=== PATIENT | female | born 2000 | race Caucasian/White ===

== ENCOUNTER 2021-10-17 07:42 | Inpatient (IN) ==
[2021-10-17] MEDS ORDERED: OXYTOCIN 30 UNITS/500 ML BAG IV PRN ×2 (07:49→07:53)
[2021-10-17 09:16] LABS: Hematocrit (blood only) 37.7 % (34.1-44.9); Hemoglobin 12.8 g/dl (12.0-16.0); Mean Corpuscular Hemoglobin 29.4 pg (25.0-34.0); Mean Corpuscular Volume 86.7 fL (80.0-100.0); Mean Platelet Volume 10.9 fL (9.4-12.3); Platelet Count 173 K/uL (130-400); RDW Coefficient of Variation 13.8 % (11.5-14.5); RDW Standard Deviation 43.7 fL (36.4-46.3); Red Blood Count 4.35 M/uL (3.93-5.22); White Blood Count 8.12 K/ul (4.8-10.8)
--- NOTE | 2021-10-17 09:30 | History & Physical Report ---
Date of Service October 17, 2021 Assessment & Plan (1) Increase in placental thickness: (2) Obesity affecting , antepartum: Plan 21 y/o G1 at 39 5/7 wga presents for IOL due to placentomegaly at [facility] rec VSS Fetus cat 1 Labor - will start pit GBS neg epidural PRN Admission and Anticipated Discharge Date Admission Date: October 17, 2021 History of Present Illness Chief Complaint: IOL Primary Care Provider: Keira Chavarria PA-C 21 y/o G1 at 39 5/7 wga presents for IOL due to placental thickening w/ lakes as recommended by [facility]. +FM; denies ctx, LOF, VB. At one point there was concern for cardiac anomaly on [facility] scan however echo was normal and she returned to routine OB care PNI: Placentomegaly w/ lakes, deliver by EDC per [facility] BMI 40 Rh neg Late presentation Past RESERVATIONS AGENT Hx: G1 06/2021 neg cyto Denies hx STIs Allergies Allergy/AdvReac Type Severity Reaction Status Date / Time Penicillins Allergy Intermediate Hives Verified 10/14/21 15:49 Home Medications Medication Instructions Recorded Confirmed Type prenat.vits,keyona,hvc-[id number] 1 tab PO DAILY 06/22/21 10/14/21 History Patient History Medical History Anxiety Rh negative status during Varicella vaccination Surgical History No history of previous surgery Family History (Updated 06/22/21 @ 13:19 by Rebecca Ac) Denies family history of Ovarian cancer Breast cancer Colorectal cancer Social History Smoking Status: Never smoker Hx Alcohol Use: No Hx Substance Use: No Preferred Language: Thai Tester Regulator Required: No Beliefs That Will Affect Care: None marital status: Single marital status details: patricia Evangelista (21) [phone] Current Living Situation: Significant Other Current Living Situation Comment: lives with neha gomez current occupational status: student current occupation: [employer] Other Information That Helps Us Care for You: No Feels Safe at Home: Yes Safety Concerns: Feels Safe At This Time Assistive Devices: None Physical Exam Genitourinary: OB Exam Abdomen: + vertex (confirmed by BSUS) and + estimated weight (7-8) Manual OB Exam: + cervical dilation 3 cm, + cervical effacement 50% and + station -2 OB Exam Monitor Tracing: + external FHT monitor used, + external uterine monitor used (none) and + category I (135 /mod/+accel/-decel) Results & Data ([facility]) Vital Signs (Past 12 Hours) Vital Signs Temp Pulse Resp BP 10/17/21 08:46 98.4 F 20 10/17/21 08:07 98.4 F 113 H 20 133/68 Laboratory Results OB Labs: Blood Type A Negative 06/24/21 Antibody Screen NEGATIVE 07/29/21 Hemoglobin 13.3 g/dL (12.0-16.0) 09/03/21 Hematocrit 39.1 % (37-47) 09/03/21 Mean Corpuscular Volume 87.3 fL (80-100) 09/03/21 Platelet Count 209 K/uL (130-400) 09/03/21 Rubella IgG Antibody Immune (Immune) 06/24/21 Rapid Plasma Reagin Nonreactive (Nonreactive) 06/24/21 Hepatitis B Surface Antigen. NON-REACTIVE (NON-REACTIVE) 06/24/21 Hepatitis C Antibody (EIA) NON-REACTIVE (NON-REACTIVE) 06/24/21 HIV (1&2) Ag and Ab Confirmation NON-REACTIVE (NON-REACTIVE) 06/24/21 Glucose 1 Hour 50 gm Load 109 mg/dl (70-130) 07/29/21 OB Optional Labs: Chlamydia trachomatis RNA NOT DETECTED (NOT DETECTED) 06/24/21 Neisseria gonorrhoeae RNA NOT DETECTED (NOT DETECTED) 06/24/21 Labs Reviewed: Declines cf/sma--mln Declines cfdna--mln GBS neg Diagnostic Findings 09/19 EFW 44%, post plac Coding Level of Care Code None Diagnoses Increase in placental thickness Obesity affecting , antepartum O99.210
[2021-10-17] MEDS: LACTATED RINGER'S 1,000 ML IV PRN ×3 (10:03→21:51)
--- NOTE | 2021-10-17 15:31 | Labor Progress Brief Note ---
Date of Service October 17, 2021 Subjective some cramping Assessment & Plan (1) Increase in placental thickness: (2) Obesity affecting , antepartum: Plan 21 y/o G1 at 39 5/7 wga presents for IOL due to placentomegaly at [facility] rec VSS Fetus cat 1 Labor - pit at 16, now s/p arom. Continue induction GBS neg epidural PRN Admission and Anticipated Discharge Date Admission Date: October 17, 2021 Physical Exam Genitourinary: Manual OB Exam: + cervical dilation (3-4), + cervical effacement 50% and + station -2 OB Exam Monitor Tracing: + external FHT monitor used, + external uterine monitor used (q3-5) and + category I (125/ mod/+accel/-decel) Results & Data ([facility]) Vital Signs (Past 12 Hours) Vital Signs Temp Pulse Resp BP 10/17/21 08:46 98.4 F 20 10/17/21 15:20 98.1 F 10/17/21 14:51 18 10/17/21 14:51 98.4 F 18 10/17/21 14:52 81 10/17/21 14:52 106/58 L 10/17/21 13:50 20 10/17/21 13:50 98.2 F 20 10/17/21 13:50 74 10/17/21 13:50 110/77 10/17/21 10:06 100 H 10/17/21 10:06 118/71 10/17/21 08:07 98.4 F 113 H 20 133/68 Coding Level of Care Code None Diagnoses Increase in placental thickness Obesity affecting , antepartum O99.210
[2021-10-17] MEDS ORDERED: fentaNYL citrate 100 MCG/2 ML VIAL ONE (17:22)
[2021-10-17] MEDS ORDERED: SODIUM CHLORIDE 0.9% INJ 10 ML VIAL ONE (17:22)
[2021-10-17] MEDS ORDERED: ePHEDrine sulfate 50 MG/ML AMP ONE (17:22)
[2021-10-17] MEDS ORDERED: BUPIVACAINE 0.25% 30 ML VIAL ONE (17:22)
[2021-10-17] MEDS ORDERED: LIDOCAINE 2%/EPINEPHRINE 1:200,000 20 ML SDV ONE (17:22)
[2021-10-17] MEDS ORDERED: fentaNYL 2MCG/ML ROPIVACAINE 1.25MG/ML 100 ML BAG EPI ONE (17:23)
[2021-10-17] MEDS ORDERED: NALOXONE HCL 0.4 MG/1 ML VIAL/CARP IV PRN (18:10)
[2021-10-17] MEDS ORDERED: fentaNYL 2MCG/ML ROPIVACAINE 1.25MG/ML 100 ML BAG EPI PRN (18:10)
[2021-10-17] MEDS ORDERED: ePHEDrine sulfate 50 MG/ML AMP IV PRN (18:10)
[2021-10-17] MEDS ORDERED: NALBUPHINE HCL INJ 10 MG/ML AMP IV PRN (18:10)
[2021-10-17] MEDS ORDERED: ONDANSETRON INJ 2 MG/ML 2 ML VIAL IV PRN (18:10)
[2021-10-17] MEDS ORDERED: NALOXONE HCL 1 MG in SODIUM CHLORIDE 0.9% 1000ML 1,000 ML IV PRN (18:10)
[2021-10-17] MEDS ORDERED: PROMETHAZINE HCL 6.25 MG in SODIUM CHLORIDE 0.9% 50 ML IV PRN (18:10)
[2021-10-17] MEDS ORDERED: diphenhydrAMINE 50 MG/ML VIAL IV PRN (18:10)
--- NOTE | 2021-10-17 18:15 | Anesthesiology Consultation ---
Date of Service October 17, 2021 Assessment & Plan Chart Review Chart Review: Patient NOT seen in Pre Admission Testing and Acceptable Risk for Labor Epidural Consults Requested none ASA ASA2 Proposed Anesthesia Anesthesia Type: Labor Epidural Risk / Benefits Reviewed With: PT / POA / Parent / Guardian, Accepts Plan and Informed Consent Obtained History Height/Weight Height: 5 ft 8 in Weight: 136.531 kg Allergies Allergy/AdvReac Type Severity Reaction Status Date / Time Penicillins Allergy Intermediate Hives Verified 10/17/21 11:19 Medications Home Medications Medication Instructions Recorded Confirmed Last Taken prenat.vits,keyona,xcw-txen-mysei 1 tab PO DAILY 10/17/21 10/17/21 10/16/21 21:00 Active Medications Generic Name Dose Route Start Last Admin Trade Name Freq PRN Reason Stop Dose Admin Lactated Ringer's 1,000 mls @ 125 mls/hr 10/17/21 07:49 10/17/21 18:00 Lr IV 10/19/21 07:48 125 mls/hr .Q8H PRN Infusion L&D Protocol Protocol Oxytocin 30 units in 500 mls @ 22 mls/hr 10/17/21 07:53 10/17/21 17:00 Pitocin IV 10/19/21 07:52 1.32 units/hr .[id number] PRN 22 mls/hr Labor Induction/Augmentation Titration Protocol 1.32 UNITS/HR Past Medical History Medical History Anxiety Rh negative status during Varicella vaccination Exercise / Class Metabolic Activity II 4-5 Yardwork/Stairs/Walk up hill Past Family History Family History Denies family history of Ovarian cancer Breast cancer Colorectal cancer Past Surgical History Surgical History No history of previous surgery Past Anesthesia History No Hx of Anesthesia Complications and No Family Hx of Anesthesia Complications History of PONV No Hx of PONV and No Hx of Motion Sickness Social History Smoking Status: Never smoker Hx Alcohol Use: No Hx Substance Use: No substance use type: does not use Physical Exam Vital Signs Last Vital Signs Temp 36.7 C 10/17/21 16:59 Pulse 80 10/17/21 18:09 Resp 18 08/08/22 18:00 BP 111/56 L 10/17/21 18:09 Pulse Ox 100 10/17/21 18:08 ENMT Mouth: no dentition abnormality Thyromental Distance: > or= 3.5 Finger Breadths Mallampati Class: II Neck normal visual inspection Respiratory normal respiratory effort Auscultation: lungs clear to auscultation bilaterally Cardiovascular Rate/Rhythm: regular rate and regular rhythm Psychiatric Orientation: alert Testing Laboratory Results 10/17/21 08:46 Blood Type A Negative 10/17/21 08:46 Blood Type Cancelled 10/17/21 08:46 Antibody Screen Cancelled 10/17/21 08:46 Antibody Screen NEGATIVE 10/17/21 08:46
--- NOTE | 2021-10-17 18:48 | Labor Progress Brief Note ---
Date of Service October 17, 2021 Subjective comfortable w/ epidural Assessment & Plan (1) Increase in placental thickness: (2) Obesity affecting , antepartum: Plan 21 y/o G1 at 39 5/7 wga presents for IOL due to placentomegaly at [facility] rec VSS Fetus cat 1 Labor - pit at 24, progression noted. Discussed ok to go to 30 as long as baby tolerates, may consider pit break at some point as well GBS neg epidural in place Admission and Anticipated Discharge Date Admission Date: October 17, 2021 Physical Exam Genitourinary: Manual OB Exam: + cervical dilation (4-5), + cervical effacement 50% and + station -2 OB Exam Monitor Tracing: + external FHT monitor used, + external uterine monitor used (q3-5) and + category I (125/mod/+accel/-decel) Results & Data ([facility]) Vital Signs (Past 12 Hours) Vital Signs Temp Pulse Resp BP Pulse Ox 10/17/21 08:46 98.4 F 20 10/17/21 18:43 100 10/17/21 18:43 86 10/17/21 18:38 100 10/17/21 18:38 72 10/17/21 18:30 18 10/17/21 18:30 18 10/17/21 18:33 99 10/17/21 18:33 89 10/17/21 18:33 85 10/17/21 18:33 94/50 L 10/17/21 18:28 100 10/17/21 18:28 70 10/17/21 18:23 100 10/17/21 18:23 79 10/17/21 18:15 18 10/17/21 18:15 18 10/17/21 18:18 100 10/17/21 18:18 92 H 10/17/21 18:15 80 10/17/21 18:15 96/55 L 10/17/21 18:13 100 10/17/21 18:13 75 10/17/21 18:08 100 10/17/21 18:08 81 10/17/21 18:09 80 10/17/21 18:09 111/56 L 10/17/21 18:03 99 10/17/21 18:03 81 10/17/21 18:03 90 10/17/21 18:03 98/52 L 10/17/21 18:00 18 10/17/21 18:00 18 10/17/21 18:01 86 10/17/21 18:01 132/53 L 10/17/21 17:58 99 10/17/21 17:58 86 10/17/21 17:59 88 10/17/21 17:59 98/53 L 10/17/21 17:48 20 10/17/21 17:48 20 10/17/21 17:55 18 10/17/21 17:55 18 10/17/21 17:57 79 10/17/21 17:57 95/56 L 10/17/21 17:54 90 10/17/21 17:54 100/56 L 10/17/21 17:53 98 10/17/21 17:53 84 10/17/21 17:53 83 10/17/21 17:53 94/55 L 10/17/21 17:51 85 10/17/21 17:51 96/60 L 10/17/21 17:48 99 10/17/21 17:48 80 10/17/21 17:43 100 10/17/21 17:43 76 10/17/21 17:38 100 10/17/21 17:38 89 10/17/21 17:35 82 10/17/21 17:35 141/65 H 10/17/21 17:33 99 10/17/21 17:33 79 10/17/21 17:28 98 10/17/21 17:28 88 10/17/21 16:59 20 10/17/21 16:59 98.1 F 20 10/17/21 16:59 75 10/17/21 16:59 124/74 10/17/21 16:06 91 H 10/17/21 16:06 119/68 10/17/21 15:20 98.1 F 10/17/21 14:51 18 10/17/21 14:51 98.4 F 18 10/17/21 14:52 81 10/17/21 14:52 106/58 L 10/17/21 13:50 20 10/17/21 13:50 98.2 F 20 10/17/21 13:50 74 10/17/21 13:50 110/77 10/17/21 10:06 100 H 08/08/22 10:06 118/71 10/17/21 08:07 98.4 F 113 H 20 133/68 Coding Level of Care Code None Diagnoses Increase in placental thickness Obesity affecting , antepartum O99.210
--- NOTE | 2021-10-17 21:49 | Labor Progress Brief Note ---
Date of Service October 17, 2021 Subjective Got more uncomfortable, pressing epidural button Assessment & Plan (1) Increase in placental thickness: (2) Obesity affecting , antepartum: Plan 21 y/o G1 at 39 5/7 wga presents for IOL due to placentomegaly at [facility] rec VSS Fetus cat 1 Labor - pit at 28, IUPC placed. Progression noted, loose 5 on SVE. Will continue induction, if hits 30 and plateaus will plan for pit break as has had good progression GBS neg epidural in place Admission and Anticipated Discharge Date Admission Date: October 17, 2021 Physical Exam Genitourinary: Manual OB Exam: + cervical dilation 5 cm, + cervical effacement 70% and + station -2 OB Exam Monitor Tracing: + external FHT monitor used, + intra-uterine pressure catheter used (q3, IUPC placed) and + category I (125/mod/+accel/-decel) Results & Data ([facility]) Vital Signs (Past 12 Hours) Vital Signs Temp Pulse Pulse Resp BP Pulse Ox O2 Del Method 10/17/21 20:13 98.1 F 10/17/21 19:11 97.5 F L 75 16 100 Room Air 10/17/21 21:43 100 10/17/21 21:43 80 10/17/21 21:41 107 H 10/17/21 21:41 122/69 10/17/21 21:38 98 10/17/21 21:38 90 10/17/21 21:35 82 10/17/21 21:35 122/72 10/17/21 21:33 99 10/17/21 21:33 81 10/17/21 21:30 78 10/17/21 21:30 122/70 10/17/21 21:28 99 10/17/21 21:28 79 10/17/21 21:25 86 10/17/21 21:25 129/73 10/17/21 21:23 99 10/17/21 21:23 78 10/17/21 21:20 77 10/17/21 21:20 125/81 10/17/21 21:18 100 10/17/21 21:18 85 10/17/21 21:13 98 10/17/21 21:13 84 10/17/21 21:08 98 10/17/21 21:08 93 H 10/17/21 21:04 86 10/17/21 21:04 126/75 10/17/21 21:03 99 10/17/21 21:03 78 10/17/21 20:58 99 10/17/21 20:58 78 10/17/21 20:53 99 10/17/21 20:53 82 10/17/21 20:48 100 10/17/21 20:48 77 10/17/21 20:48 114/67 10/17/21 20:43 99 10/17/21 20:43 80 10/17/21 20:38 98 10/17/21 20:38 78 10/17/21 20:33 98 10/17/21 20:33 89 10/17/21 20:32 86 10/17/21 20:32 114/60 10/17/21 20:28 98 10/17/21 20:28 73 10/17/21 20:23 98 10/17/21 20:23 83 10/17/21 20:18 99 10/17/21 20:18 73 10/17/21 20:19 76 10/17/21 20:19 118/68 10/17/21 20:13 99 10/17/21 20:13 73 10/17/21 20:03 98.1 F 10/17/21 20:08 100 10/17/21 20:08 79 10/17/21 20:03 100 10/17/21 20:03 84 10/17/21 19:58 99 10/17/21 19:58 76 10/17/21 19:53 100 10/17/21 19:53 78 10/17/21 19:48 100 10/17/21 19:48 71 10/17/21 19:49 74 10/17/21 19:49 113/62 10/17/21 19:43 100 10/17/21 19:43 79 10/17/21 19:38 100 10/17/21 19:38 71 10/17/21 19:33 98 10/17/21 19:33 89 10/17/21 19:32 76 10/17/21 19:32 113/69 10/17/21 19:28 100 10/17/21 19:28 76 10/17/21 19:23 100 10/17/21 19:23 80 10/17/21 19:18 100 10/17/21 19:18 82 10/17/21 19:18 75 10/17/21 19:18 113/71 10/17/21 19:13 100 10/17/21 19:13 74 10/17/21 19:08 100 10/17/21 19:08 75 10/17/21 19:05 18 10/17/21 19:05 97.5 F L 18 10/17/21 19:03 100 10/17/21 19:03 76 10/17/21 19:03 82 10/17/21 19:03 115/73 10/17/21 18:58 100 10/17/21 18:58 77 10/17/21 18:53 100 10/17/21 18:53 78 10/17/21 18:48 100 10/17/21 18:48 71 10/17/21 18:49 71 10/17/21 18:49 110/70 10/17/21 18:43 100 10/17/21 18:43 86 10/17/21 18:38 100 10/17/21 18:38 72 10/17/21 18:30 18 10/17/21 18:30 18 10/17/21 18:33 99 10/17/21 18:33 89 10/17/21 18:33 85 10/17/21 18:33 94/50 L 10/17/21 18:28 100 10/17/21 18:28 70 10/17/21 18:23 100 10/17/21 18:23 79 10/17/21 18:15 18 10/17/21 18:15 18 10/17/21 18:18 100 10/17/21 18:18 92 H 10/17/21 18:15 80 10/17/21 18:15 96/55 L 10/17/21 18:13 100 10/17/21 18:13 75 10/17/21 18:08 100 10/17/21 18:08 81 10/17/21 18:09 80 10/17/21 18:09 111/56 L 10/17/21 18:03 99 10/17/21 18:03 81 10/17/21 18:03 90 10/17/21 18:03 98/52 L 10/17/21 18:00 18 10/17/21 18:00 18 10/17/21 18:01 86 10/17/21 18:01 132/53 L 10/17/21 17:58 99 10/17/21 17:58 86 10/17/21 17:59 88 10/17/21 17:59 98/53 L 10/17/21 17:48 20 10/17/21 17:48 20 10/17/21 17:55 18 10/17/21 17:55 18 10/17/21 17:57 79 10/17/21 17:57 95/56 L 10/17/21 17:54 90 10/17/21 17:54 100/56 L 10/17/21 17:53 98 10/17/21 17:53 84 10/17/21 17:53 83 10/17/21 17:53 94/55 L 10/17/21 17:51 85 10/17/21 17:51 96/60 L 10/17/21 17:48 99 10/17/21 17:48 80 10/17/21 17:43 100 10/17/21 17:43 76 10/17/21 17:38 100 10/17/21 17:38 89 10/17/21 17:35 82 10/17/21 17:35 141/65 H 10/17/21 17:33 99 10/17/21 17:33 79 10/17/21 17:28 98 10/17/21 17:28 88 10/17/21 16:59 20 10/17/21 16:59 98.1 F 20 10/17/21 16:59 75 10/17/21 16:59 124/74 10/17/21 16:06 91 H 10/17/21 16:06 119/68 10/17/21 15:20 98.1 F 10/17/21 14:51 18 10/17/21 14:51 98.4 F 18 10/17/21 14:52 81 10/17/21 14:52 106/58 L 10/17/21 13:50 20 10/17/21 13:50 98.2 F 20 10/17/21 13:50 74 10/17/21 13:50 110/77 10/17/21 10:06 100 H 10/17/21 10:06 118/71 Coding Level of Care Code None Diagnoses Increase in placental thickness Obesity affecting , antepartum O99.210
[2021-10-17] MEDS ORDERED: NURSING L&D Epidural Breakthrough Pain Update ONE (22:17)
[2021-10-18] MEDS ORDERED: BUPIVACAINE 0.25% 30 ML VIAL ONE (00:05)
--- NOTE | 2021-10-18 04:50 | Delivery Summary ---
Vaginal Delivery Summary Date of Service October 18, 2021 Vaginal Delivery Summary (sulcal laceration) PREOPERATIVE DIAGNOSIS: 1. Single intrauterine at 39 6/7 wga 2. Placentomegaly with lakes 3. Rh neg 4. Late presentation to care POSTOPERATIVE DIAGNOSIS: 1. Single intrauterine at 39 6/7 wga 2. Placentomegaly with lakes 3. Rh neg 4. Late presentation to care 5. Delivered PROCEDURE: 1. Normal spontaneous vaginal delivery. SURGEON: Amy Hart MD ANESTHESIA: Epidural. ESTIMATED BLOOD LOSS: 500 mL (largely from laceration) FLUIDS: Continuous LR. URINE OUTPUT: None. COMPLICATIONS: None. CONDITION: Stable. INDICATIONS: 21 yo G1 at 39 6/7 wga presented 1 day ago for planned IOL due to placental thickening per [facility] recommendation. She was started on pitocin and titrated up. She underwent AROM and then received an epidural for pain control. IUPC was placed for more accurate monitoring as pitocin was needed to titrate up to 28. She then progressed to complete and desired to push. FINDINGS: A viable female , weight pending with Apgars of 6 and 8 at 1 and 5 minutes respectively. SPECIMEN: Cord blood, placenta OPERATIVE REPORT: The patient progressed to 10 cm, 100% effaced and +2 station, pushed over intact perineum with anesthesia to deliver a viable female infant, weight and Apgars as above. Head of delivered in ORALIA position. No nuchal cord was present. Body and shoulders were delivered without difficulty. was delivered to maternal abdomen and nursing staff. Delayed cord clamping was performed for 60 seconds. Cord was clamped and cut. Cord blood was obtained. Placenta delivered spontaneously intact with 3-vessel cord. IV oxytocin and fundal massage were given for excellent hemostasis. Vagina, cervix, perineum, and placenta were inspected. A left sulcal laceration was noted and repaired using 3-0 vicryl. Tissue was very edematous so multiple figures of eight stitches were used to secure bleeding. A left labial laceration was repaired using 4-0 vicryl. Hemostatic bilateral upper labial lacerations and a hemostatic periurethral were noted and not needed to be repaired. There was then excellent hemostasis. Sponge and needle counts correct x2. No sponges were left behind. Mother and stable in immediate period. [facility] [place] Vaginal Delivery Charge Vaginal Delivery Codes: 59927 global code for the antepartum, delivery, and post- Delivery Type Details: (sulcal laceration)
[2021-10-18] MEDS ORDERED: HYDROCORTISONE ACETATE 25 MG SUPP PR PRN (05:11)
[2021-10-18] MEDS ORDERED: DIPHTHERIA/TETANUS/PERTUSSIS 0.5 ML SYR/VIAL IM ONE (05:11)
[2021-10-18] MEDS ORDERED: ACETAMINOPHEN 325 MG TAB PO PRN (05:11)
[2021-10-18] MEDS ORDERED: OXYTOCIN 30 UNITS/500 ML BAG IV PRN (05:11)
[2021-10-18] MEDS: IBUPROFEN 600 MG TAB PO PRN ×2 (05:38→19:28)
--- NOTE | 2021-10-18 08:01 | Anesthesia Procedure Note ---
Date of Service October 18, 2021 Anesthesia Post Epidural Note Vital Signs Vital Signs: Temp Pulse Resp BP Pulse Ox O2 Del Method 36.8 C 88 16 125/59 L 84 L 10/18/21 05:22 10/18/21 06:57 10/17/21 23:15 10/18/21 06:57 10/18/21 04:39 10/18/21 03:12 Pain Intensity Lower Abdomen: Pain Intensity: 2 Notes Mental Status: alert / awake / arousable and participated in evaluation Nausea / Vomiting: adequately controlled Pain: adequately controlled Airway Patency, RR, SpO2: stable & adequate BP & HR: stable & adequate Hydration State: stable & adequate Neuraxial Anesthesia: was administered and sensory block is resolving Anesthetic Complications: no major complications apparent and Pt Satisfied with anesthetic care Epidural: Removed without complications and With tip intact
[2021-10-18] MEDS: PRENATAL VITAMIN 1 TAB PO SCH (08:56)
[2021-10-18] MEDS: DOCUSATE SODIUM 100 MG CAP PO SCH ×2 (08:56→19:28)
[2021-10-18] MEDS: FERROUS SULFATE 325 MG TAB PO SCH (08:56)
[2021-10-18] MEDS: BENZOCAINE 20% AER SPR 82.5 GM CAN EXT PRN (11:10)
[2021-10-19] MEDS: IBUPROFEN 600 MG TAB PO PRN ×2 (03:06→16:14)
--- NOTE | 2021-10-19 05:49 | Obstetrical Progress Note ---
Date of Service October 19, 2021 Assessment & Plan (1) Increase in placental thickness: (2) Rh negative status during : (3) Late care affecting : (4) Obesity affecting , antepartum: Plan s/p PPD 1: -vital signs reviewed and WNL -hemoglobin 12.8 -A-, GBS-, rubella immune -encourage ambulation, monitor pain and treat with motrin PRN -return to normal diet -encourage Lb Eisenberg is a 21 y/o female who is PPD #1 following She reports feeling well overall this morning. Some abdominal cramping but pain well managed on analgesics. Voiding without issue. Tolerating meals overnight and able to ambulate some. Is passing gas and no bowel movement. Has some persistent lochia with some improvement this morning. Currently breast feeding. Constitutional: no fever, no chills or no sweats Respiratory: no cough, no dyspnea or no wheezing Cardiovascular: no chest pain, no palpitations or no calf pain Breast: no breast pain Genitourinary (female): no dysuria Neurologic: no headache(s) Physical Exam Constitutional WD/WN, vitals as above no acute distress Respiratory no respiratory distress Auscultation: lungs clear to auscultation bilaterally; no rales, no rhonchi and no wheezes Cardiovascular RRR, no murmur, no edema Extremities: no calf tenderness and no edema Negative Rut's sign bilaterally. Gastrointestinal (Abdomen) Inspection/Auscultation: normal bowel sounds Genitourinary Uterine fundus firm, palpable below the umbilicus. Results & Data ([facility]) Vital Signs (Past 12 Hours) Vital Signs Temp Pulse Resp BP Pulse Ox O2 Del Method 10/19/21 03:00 36.5 C 75 16 131/77 Room Air 10/18/21 23:34 36.8 C 74 16 117/70 98 Room Air 10/18/21 20:00 37.0 C 93 H 16 136/81 Room Air Resident Activity Tracking Resident Involvement: Resident Care Provided Care Provided: OB Delivery
[2021-10-19 06:42] LABS: Hematocrit (blood only) 33.3 % (34.1-44.9); Hemoglobin 11.1 g/dl (12.0-16.0); Mean Corpuscular Hemoglobin 29.2 pg (25.0-34.0); Mean Corpuscular Hgb Conc 33.3 g/dL (32.0-36.0); Mean Corpuscular Volume 87.6 fL (80.0-100.0); Mean Platelet Volume 10.6 fL (9.4-12.3); Platelet Count 164 K/uL (130-400); RDW Coefficient of Variation 14.2 % (11.5-14.5); RDW Standard Deviation 44.2 fL (36.4-46.3); White Blood Count 9.93 K/ul (4.8-10.8)
[2021-10-19] MEDS: PRENATAL VITAMIN 1 TAB PO SCH (08:37)
[2021-10-19] MEDS: FERROUS SULFATE 325 MG TAB PO SCH (08:37)
[2021-10-19] MEDS: DOCUSATE SODIUM 100 MG CAP PO SCH ×2 (08:37→20:42)
[2021-10-19] MEDS ORDERED: bisacodyL 5 MG TABEC PO SCH (20:00)
[2021-10-20] MEDS ORDERED: bisacodyL 10 MG SUPP PR PRN
[2021-10-20] MEDS: IBUPROFEN 600 MG TAB PO PRN ×2 (04:34→08:46)
--- NOTE | 2021-10-20 05:50 | Obstetrical Progress Note ---
Date of Service <Ester Sorensen DO - Last Filed: 10/20/21 07:27> October 20, 2021 Assessment & Plan <Ester Sorensen DO - Last Filed: 10/20/21 07:27> (1) Increase in placental thickness: (2) Rh negative status during : (3) Late care affecting : (4) Obesity affecting , antepartum: Plan s/p PPD 2: -Vital signs reviewed and WNL, Tmax at 37.3 -Hemoglobin reviewed, 12.8 (10/18) 11.1 (8) -A-, GBS-, rubella immune -Patient is doing well clinically -Encourage ambulation, monitor pain and treat with motrin PRN, monitor lochia -Return to normal diet -Encourage -Discussed discharge instructions with patient <Josee Wilder MD, FACOG - Last Filed: 10/20/21 07:55> (1) Increase in placental thickness: (2) Rh negative status during : (3) Late care affecting : (4) Obesity affecting , antepartum: Subjective <Ester Sorensen DO - Last Filed: 10/20/21 07:27> Faina is a 21 y/o who is PPD 2 following at 39 6/7 weeks. Her was complicated by Rh negative status and placentomegaly. Patient was seen and examined at bedside. Reports that she is doing well overall this morning. Has been voiding without issue. Tolerating meals and denies any nausea or vomiting. Has been able to ambulate some. Has persistent lochia with some improvement today. Has been pumping and breast feeding. Constitutional: no fever, no chills or no sweats Respiratory: no cough, no dyspnea or no wheezing Cardiovascular: no chest pain, no palpitations or no calf pain Breast: no breast pain Genitourinary (female): no dysuria Neurologic: no headache(s) Physical Exam <Ester Sorensen DO - Last Filed: 10/20/21 07:27> Constitutional WD/WN, vitals as above no acute distress Respiratory no respiratory distress Auscultation: lungs clear to auscultation bilaterally; no rales, no rhonchi and no wheezes Cardiovascular RRR, no murmur, no edema Extremities: no calf tenderness and no edema Gastrointestinal (Abdomen) Inspection/Auscultation: normal bowel sounds Genitourinary Uterine fundus firm, palpable below umbilicus Results & Data ([facility]) <Ester Sorensen DO - Last Filed: 10/20/21 07:27> Vital Signs (Past 12 Hours) Vital Signs Temp Pulse Resp BP Pulse Ox O2 Del Method 10/20/21 00:15 36.7 C 80 18 120/78 99 Room Air <Josee Wilder MD, FACOG - Last Filed: 10/20/21 07:55> Co-Signing Physician Notes Resident Physician Supervision Note: I interviewed and examined the patient. Discussed with Dr. Sorensen and agree with findings and plan as documented in the note. Any exceptions or clarifications are listed here: [None] Documented By: Josee Wilder MD, FACOG Resident Activity Tracking <Ester Sorensen DO - Last Filed: 10/20/21 07:27> Resident Involvement: Resident Care Provided Care Provided: OB Delivery
[2021-10-20] MEDS: DOCUSATE SODIUM 100 MG CAP PO SCH (08:43)
[2021-10-20] MEDS: FERROUS SULFATE 325 MG TAB PO SCH (08:43)
[2021-10-20] MEDS: PRENATAL VITAMIN 1 TAB PO SCH (08:43)
[2021-10-20] MEDS: BENZOCAINE 20% AER SPR 82.5 GM CAN EXT PRN (10:16)
== END 2021-10-20 11:05 | disposition home or self-care (01) | DRG 807 ==
LOC: 4S1 07:42 → 4E2 10-18 08:56